=== PATIENT | female | born 1970 | race Caucasian/White ===

== ENCOUNTER 2016-12-01 11:12 | Emergency (ER) | payer SELFPAY ==
[~2016-12-01] VITALS: Ht 154.9 cm; Wt 85.0 kg
[2016-12-01 11:42] VITALS: BP 135/84
[2016-12-01] MEDS ORDERED: KETOROLAC TROMETHAMINE 60 MG/2 ML VIAL IM ONE (12:00)
== END 2016-12-01 12:22 | disposition home or self-care (01) ==
LOC: EMS 11:13
DX: M21.41 Flat foot [pes planus] (acquired), right foot (principal); M21.42 Flat foot [pes planus] (acquired), left foot
CPT/HCPCS: 96372; 99283; J1885

== ENCOUNTER 2017-04-11 07:20 | Emergency (ER) | payer BC ==
[~2017-04-11] VITALS: Ht 165.1 cm; Wt 64.0 kg
[2017-04-11] MEDS ORDERED: KETOROLAC TROMETHAMINE 60 MG/2 ML VIAL IM ONE (09:00)
[2017-04-11 10:37] VITALS: BP 125/70
== END 2017-04-11 11:30 | disposition home or self-care (01) ==
LOC: EMS 07:21
DX: M21.41 Flat foot [pes planus] (acquired), right foot (principal)
CPT/HCPCS: 29515; 73630; 96372; 99284; J1885

== ENCOUNTER 2018-05-12 16:00 | Emergency (ER) | payer BC, OTHER ==
[~2018-05-12] VITALS: Ht 157.5 cm; Wt 68.2 kg
[2018-05-12] MEDS ORDERED: KETOROLAC TROMETHAMINE 30 MG/ML VIAL IM ONE (19:45)
[2018-05-12 20:30] VITALS: BP 132/77
== END 2018-05-12 20:00 | disposition home or self-care (01) ==
LOC: EMS 16:01
DX: M21.42 Flat foot [pes planus] (acquired), left foot (principal); M21.41 Flat foot [pes planus] (acquired), right foot; M21.6X2 Other acquired deformities of left foot; M21.6X1 Other acquired deformities of right foot; F32.9 Major depressive disorder, single episode, unspecified; Z90.710 Acquired absence of both cervix and uterus
CPT/HCPCS: 96372; 99283; J1885